=== PATIENT | female | born 1985 | race African-American/Black ===

== ENCOUNTER 2016-11-01 18:56 | Emergency (ER) | payer MEDICAID ==
--- NOTE | 2016-11-01 19:15 | ER Document Report ---
ED Medical Screen (RME) - General Stated Complaint: COUGH Notes: 30 yo female brought to ED by EMS from urgent care for hyperventilation. + URI symptoms x 2 weeks. fever started yesterday. + hx/o IDDM, HTN TRAVEL OUTSIDE OF THE [place] IN LAST 30 DAYS: No - Related Data Allergies/Adverse Reactions: insulin detemir [From Levemir] Allergy (Verified 09/16/15 23:24) insulin glargine, human recombin. a [From Lantus] Allergy (Verified 09/16/15 23: 24) blanca [Blanca] Allergy (Verified 09/16/15 23:25)
[2016-11-01 19:55] LABS: ABSOLUTE EOSINOPHILS # (AUTO) 0.1 10^3/uL (0.0-0.6); ABSOLUTE LYMPHOCYTES (AUTO) 2.3 10^3/uL (0.5-4.7); ABSOLUTE NEUT (AUTO) 5.1 10^3/uL (1.7-8.2); ALANINE AMINOTRANSFERASE 27 U/L (9-52); ALKALINE PHOSPHATASE 113 U/L (38-126); ANION GAP 15 (5-19); ASPARTATE AMINO TRANSFERASE 16 U/L (14-36); BASOPHILS % (AUTO) 0.5 % (0-2); BILIRUBIN,TOTAL 0.5 mg/dL (0.2-1.3); BLOOD UREA NITROGEN 14 mg/dL (7-20); CALCIUM 9.5 mg/dL (8.4-10.2); CARBON DIOXIDE 21 mmol/L (22-30); CHLORIDE 99 mmol/L (98-107); CREATININE RESULT 0.93 mg/dL (0.52-1.25); EOSINOPHILS % (AUTO) 0.9 % (0-6); GLUCOSE 131 mg/dL (75-110); HEMATOCRIT 40.5 % (36.0-47.0); HEMOGLOBIN 12.7 g/dL (12.0-15.5); HGB HCT DIFFERENCE -2.4; LYMPHOCYTES % (AUTO) 27.3 % (13-45); MEAN CORPUSCULAR HEMOGLOBIN 19.2 pg (27.0-33.4); MEAN CORPUSCULAR HGB CONC 31.4 g/dL (32.0-36.0); MONOCYTES % (AUTO) 11.8 % (3-13); POTASSIUM 4.3 mmol/L (3.6-5.0); RED BLOOD COUNT 6.62 10^6/uL (3.72-5.28); RED CELL DISTRIBUTION WIDTH 16.5 % (11.5-14.0); SEGMENTED NEUTROPHILS % (AUTO) 59.5 % (42-78); SODIUM 135.2 mmol/L (137-145); TOTAL PROTEIN 7.5 g/dL (6.3-8.2); WHITE BLOOD COUNT 8.5 10^3/uL (4.0-10.5)
[2016-11-01 19:57] LABS: APPEARANCE,URINE SLIGHTLY-CLOUDY; BILIRUBIN,URINE NEGATIVE (NEGATIVE); GLUCOSE, URINE >=500 mg/dL (NEGATIVE); KETONES,URINE 20 mg/dL (NEGATIVE); LEUKOCYTE ESTERASE,URINE NEGATIVE (NEGATIVE); NITRITE,URINE NEGATIVE (NEGATIVE); PROTEIN,URINE NEGATIVE (NEGATIVE); URINE SPECIFIC GRAVITY 1.032; UROBILINOGEN,URINE NEGATIVE mg/dL (<2.0)
[2016-11-01 20:08] LABS: ANISOCYTOSIS 1+; HYPOCHROMASIA 1+; MICROCYTOSIS 3+; OVALOCYTES 1+; PLATELET CLUMPS PRESENT; POIKILOCYTOSIS SLIGHT; POLYCHROMASIA SLIGHT; TEAR DROP CELLS SLIGHT
[2016-11-01 20:10] LABS: MEAN CORPUSCULAR VOLUME 61 fl (80-97)
[2016-11-01] MEDS ORDERED: IPRATROPIUM/ALBUTEROL 0.5-2.5 MG/3 ML AMPUL NEB ONE (22:05)
[2016-11-01] MEDS ORDERED: BUDESONIDE/FORMOTEROL 160-4.5 MCG 60 PUFF/6 GM MDI IH ONE ×2 (22:06→23:11)
[2016-11-01] MEDS: IPRATROPIUM BROMIDE 0.02% NEB 0.5 MG/2.5 ML AMPUL NEB PRN ×2 (23:00→23:34)
--- NOTE | 2016-11-01 23:00 | ER Document Report ---
ED Respiratory Problem <UMRE FRANCIS - Last Filed: 11/02/16 00:12> - General TRAVEL OUTSIDE OF THE [place] IN LAST 30 DAYS: No <ANISHA THOMAS - Last Filed: 11/02/16 00:21> <EILEEN CALLAWAY - Last Filed: 11/02/16 06:16> - General Chief Complaint: Cough Stated Complaint: COUGH Notes: Patient is a 30-year-old female presents emergency Department complaining of shortness of breath. She was referred over states that she's had a cough for a couple weeks was previously treated for bronchitis months ago. Admits that she had a fever last night and has been taking Tylenol. States she has been good with fluid intake. Did receive a flu vaccine this year. Currently she admits to shortness of breath and feeling like she can't catch her breath and cough. Denies any chest pain. PCP is [facility] Past medical history significant for diabetes, hypertension, depression Past surgical history significant for 2 Denies any allergies (ANISHA THOMAS) - Related Data Allergies/Adverse Reactions: insulin detemir [From Levemir] Allergy (Verified 09/16/15 23:24) insulin glargine, human recombin. a [From Lantus] Allergy (Verified 09/16/15 23: 24) venus [Venus] Allergy (Verified 09/16/15 23:25) Past Medical History - Social History Smoking Status: Never Smoker Chew tobacco use (# tins/day): No Frequency of alcohol use: Rare Family History: Reviewed & Not Pertinent Patient has suicidal ideation: No Patient has homicidal ideation: No Renal/ Medical History: Denies: Hx Peritoneal Dialysis <ANISHA THOMAS - Last Filed: 11/02/16 00:21> Review of Systems - Review of Systems Constitutional: See HPI EENT: No symptoms reported Cardiovascular: No symptoms reported Respiratory: See HPI Gastrointestinal: No symptoms reported Genitourinary: No symptoms reported Female Genitourinary: No symptoms reported Musculoskeletal: No symptoms reported Skin: No symptoms reported Hematologic/Lymphatic: No symptoms reported Neurological/Psychological: No symptoms reported <ANISHA THOMAS - Last Filed: 11/02/16 00:21> Physical Exam <UMER FRANCIS - Last Filed: 03/02/17 00:12> <ANISHA THOMAS - Last Filed: 11/02/16 00:21> <EILEEN CALLAWAY - Last Filed: 11/02/16 06:16> - Vital signs Vitals: Temp Pulse Resp BP Pulse Ox 98.3 F 72 20 120/56 L 98 11/01/16 19:16 11/01/16 19:16 11/01/16 19:16 11/01/16 19:16 11/01/16 19:16 - Notes Notes: PHYSICAL EXAM GENERAL: Alert, interacts well. HEAD: Normocephalic, atraumatic. EYES: Pupils equal, round, and reactive to light. Extraocular movements intact. ENT: Oral mucosa moist, tongue midline. NECK: Full range of motion. Supple. Trachea midline. LUNGS: Poor air movement bilaterally, no wheezes, rales, or rhonchi. Visibly labored breathing but able to talk in full sentences HEART: Regular rate and rhythm. No murmurs, gallops, or rubs. ABDOMEN: Soft, nondistended, nontender. No guarding, rebound, or rigidity.. Bowel sounds present in all 4 quadrants. EXTREMITIES: Moves all 4 extremities spontaneously. No edema, radial and dorsalis pedis pulses 2/4 bilaterally. No cyanosis. NEUROLOGICAL: Alert and oriented x3. Normal speech. PSYCH: Normal affect, normal mood. SKIN: Warm, dry, normal turgor. No rashes or lesions noted. (ANISHA THOAMS) Course - Laboratory Result Diagrams: 11/01/16 19:25 11/01/16 19:25 <UMER FRANCIS - Last Filed: 11/02/16 00:12> - Laboratory Result Diagrams: 11/01/16 19:25 11/01/16 19:25 <ANISHA THOMAS - Last Filed: 11/02/16 00:21> - Laboratory Result Diagrams: 11/01/16 19:25 11/01/16 19:25 <EILEEN CALLAWAY - Last Filed: 11/02/16 06:16> - Re-evaluation Re-evalutation: 11/02/16 00:12 I spoke with Mrs. Thomas, physician's business assistant to evaluate the patient. She informed me the patient is concerned because patient still has some wheezing despite multiple breathing treatments. I did go reevaluate the patient. Patient is slightly tachypneic however she speaking. This. She does have diffuse wheezing and rhonchi. She has no history of asthma and is nonsmoker. She has had bronchitis in the past several times. She has been on Spiriva for the last several days. She had a fever 101 at the urgent care prior to arrival here. Flu swab is negative. Chest x-ray is negative. At this time I'll give her a dose of magnesium and repeat breathing treatments to see if this improves her symptoms. She is a type II diabetic. (UMER FRANCIS) 11/01/16 23:10 Patient is a 30-year-old female presents with shortness of breath and cough. Upon physical exam she is poor air movement so gave her a DuoNeb treatment which did not reveals mild wheezing at the bases. Labs are all relatively unremarkable for any concerns for infection, anemia. Chest x-ray does not reveal any acute cardiopulmonary process. Negative for influenza. Will at this time give nebulizer treatment using Atrovent and monitor for effectiveness. 11/02/16 00:15 Patient is received 2 treatments of Atrovent and 1 DuoNeb. Still persistent wheezing and rhonchi bilaterally. Patient states that she feels better but still short of breath, speaking in full sentences. Satting 100% on room air evidence of tachycardia on recheck of her vitals. Heart rate in the 130s to 140s which is consistent with her presentation on EMS documentation. I have consulted supervising physician Dr. Umer Francis. 11/02/16 00:21 I have signed out to CHRIS Callaway. At this time, the patient is HDS, NAD and afebrile. Will get updated VS at this time. Patient clinical states she is feeling better but still tachypnic but able to speak in full sentences. (ANISHA THOMAS) 11/02/16 04:06 Patient sounds a lot better. No shortness of breath, speaks in full sentences without any problems. 11/02/16 06:15 1gm Magnesium infused pt sounds 100% better, ambulates to the BR without SOB. Consulted dr francis, he agrees with discharge, no need for 2nd gm. (EILEEN CALLAWAY) - Vital Signs Vital signs: Temp Pulse Resp BP Pulse Ox 98.3 F 140 H 12 129/61 H 100 11/01/16 19:16 11/01/16 23:50 11/02/16 06:01 11/02/16 06:01 11/01/16 23:50 - Laboratory Laboratory results interpreted by me: 11/01/16 11/01/16 11/01/16 19:25 19:25 19:25 RBC 6.62 H MCV 61 L MCH 19.2 L MCHC 31.4 L RDW 16.5 H Sodium 135.2 L Carbon Dioxide 21 L Glucose 131 H Urine Glucose (UA) >=500 H Urine Ketones 20 H Urine Blood LARGE H Discharge <UMER FRANCIS - Last Filed: 11/02/16 00:12> <ANISHA THOMAS - Last Filed: 11/02/16 00:21> <EILEEN CALLAWAY - Last Filed: 11/02/16 06:16> - Discharge Clinical Impression: Bronchitis Condition: Good Disposition: HOME, SELF-CARE Additional Instructions: Bronchitis with Bronchospasm (Wheezing) You have bronchitis with bronchospasm (wheezing). Sometimes people develop wheezing with a chest cold. This occurs either because of an underlying tendency toward asthma or because the virus itself irritates the bronchial tubes. This irritation causes cough, shortness of breath, and wheezing. Emergency treatment of bronchospasm may include adrenaline shots or bronchodilator aerosol. You may feel lightheaded and have a rapid pulse for an hour or two. Rest and get plenty of fluids. At home, we'll treat you with a bronchodilator inhaler. Corticosteroids may be required for some patients. Until you recover, avoid chemical fumes, dusts, pollens, and exercising in very cold or dry air. If you smoke, stop now! Most cases of bronchitis get better without antibiotics. We prescribe antibiotics when we believe bacteria are damaging your airways, or if there's high risk the bronchitis will worsen into pneumonia. Increase your fluid intake. A cool mist humidifier may make your lungs more comfortable. An expectorant (cough medicine that loosens phlegm) can help. Repeated episodes of bronchitis and bronchospasm may result in lung damage -- for example, chronic bronchitis, recurrent pneumonias, or emphysema. If you develop a fever, increased wheezing, chest pain, or severe shortness of breath, you should contact the doctor immediately. Use the symbicort every 12 hours for the next 3-5 days Prescriptions: Albuterol Sulfate [Proair HFA Inhalation Aerosol 8.5 gm MDI] 2 puff IH Q4H PRN # 1 mdi PRN Reason: Prednisone 20 mg PO TID 7 Days Forms: Return to Work Referrals: ALMA MERCADO MD [Primary Care Provider] - Follow up in 1 week
[2016-11-01] MEDS ORDERED: PREDNISONE 20 MG TABLET PO ONE (23:20)
[2016-11-01] MEDS ORDERED: ALBUTEROL SULFATE HFA (90 MCG/PUFF) 200 PUFF/8.5 GM MDI IH ONE (23:46)
[2016-11-02] MEDS ORDERED: NORMAL SALINE 1000 ML 1,000 ML IV ONE (00:03)
[2016-11-02] MEDS ORDERED: ALBUTEROL SULFATE 0.083% NEB 2.5 MG/3 ML AMPUL NEB ONE (00:14)
[2016-11-02] MEDS ORDERED: MAGNESIUM SULFATE/D5W 100 ML IV SCH (00:15)
[2016-11-02 06:08] VITALS: BP 129/61
== END 2016-11-02 06:31 | disposition home or self-care (01) ==
LOC: ER 18:56
DX: J40 Bronchitis, not specified as acute or chronic (principal); R06.02 Shortness of breath
CPT/HCPCS: 94640 ×2; 99284; 96365; 36415; 85025; 80053; 81001; 87804; 71020; J3490 ×2; J3475; J7512; J7620